=== PATIENT | female | born 1955 | race Caucasian/White ===

== ENCOUNTER 2018-06-20 15:37 | Emergency (ER) | payer MEDICAID ==
[~2018-06-20] VITALS: Ht 177.8 cm; Wt 80.0 kg
[~2018-06-20 15:37] MED LIST: DES150T PO; HYDR-3965 PO; VENL-190 PO
[2018-06-20 15:46] VITALS: BP 144/97
[2018-06-20] MEDS ORDERED: LIDOcaine 1% 30ml preserv. free vial IJ ONE (16:30)
[2018-06-20] MEDS ORDERED: TETanus/Pertussis (Acell)/Diphther VAC/PF (Tdap-Adult) 0.5ml syringe IM ONE (16:30)
[2018-06-20] MEDS ORDERED: ceFAZolin 1GM/D5W- ADD-VANTAGE 50 ML IV STA (17:12)
[2018-06-20] MEDS ORDERED: gentamicin inj 80 MG in normal saline 100ml IV soln 100 ML IV ONE (17:15)
[2018-06-20] MEDS ORDERED: cefazolin/dext.iso 2gm/100ml 100 ML IV ONE (17:20)
[2018-06-20] MEDS ORDERED: ondansetron/PF 4mg/2ml inj IV ONE (18:15)
[2018-06-20] MEDS ORDERED: ONDA4TAB6 PO (18:49)
[2018-06-20] MEDS ORDERED: HYDR-4353 PO (18:49)
[2018-06-20] MEDS ORDERED: CEPH500C5 PO (18:49)
[2018-06-20] MEDS ORDERED: bacitracin 15gm ointment TP ONE (19:25)
--- NOTE | 2018-06-20 20:07 | NUR ---
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 other lacerations sutured and dressed with xeroform and dry gauze. pt given instructions to leave dressing in place for three days until follow up with PCP or ER MD. Lacerations on rt had washed with soap and water, then flushed with NS. Lacerations dressed with bacitracin and bandaids. Pt instructed to keep dressing dry, but dressings can be changed with more bacitracin and bandaids.
== END 2018-06-20 20:16 | disposition home or self-care (01) ==
LOC: ER 15:43
DX: S61.215A Laceration without foreign body of left ring finger without damage to nail, initial encounter (principal); S61.213A Laceration without foreign body of left middle finger without damage to nail, initial encounter; S61.210A Laceration without foreign body of right index finger without damage to nail, initial encounter; S61.214A Laceration without foreign body of right ring finger without damage to nail, initial encounter; Z87.891 Personal history of nicotine dependence; Z98.890 Other specified postprocedural states; Z88.5 Allergy status to narcotic agent; Z79.899 Other long term (current) drug therapy; W26.0XXA Contact with knife, initial encounter; Y93.89 Activity, other specified; Y92.89 Other specified places as the place of occurrence of the external cause; Y99.9 Unspecified external cause status
CPT/HCPCS: 12002; 73120; 96365; 96367; 96375; 99284; J0690; J1580; J2405; J3490; J7030

== ENCOUNTER 2018-09-09 08:39 | Outpatient (CLI) | payer MEDICAID ==
[~2018-09-09 08:39] MED LIST changes: +ONDA4TAB6 PO
[2018-09-09] MEDS ORDERED: albuterol 2.5 MG/3 ML nebule ONE (09:24)
[2018-09-09] MEDS ORDERED: albuterol 2.5 MG/3 ML nebule NEB PRN (09:40)
== END 2018-09-09 23:59 | disposition home or self-care (01) ==
LOC: RT 08:39
PROVIDERS: ATTEND Internal Medicine Pulmonary Disease
DX: J44.9 Chronic obstructive pulmonary disease, unspecified (principal); M13.88 Other specified arthritis, other site; Z96.652 Presence of left artificial knee joint; Z87.891 Personal history of nicotine dependence
CPT/HCPCS: 94060; 94727; 94729; 94760

== ENCOUNTER 2022-09-18 10:23 | Outpatient (CLI) | payer MEDICARE, MEDICAID ==
[~2022-09-18] VITALS: Ht 165.1 cm; Wt 73.5 kg
[2022-09-18] MEDS ORDERED: albuterol 2.5 MG/3 ML nebule NEB ONE (11:20)
== END 2022-09-18 23:59 | disposition home or self-care (01) ==
LOC: RT 10:23
PROVIDERS: ATTEND Internal Medicine Pulmonary Disease
DX: J44.9 Chronic obstructive pulmonary disease, unspecified (principal); R94.2 Abnormal results of pulmonary function studies
CPT/HCPCS: 85018; 94060; 94727; 94729; 94760